=== PATIENT | male | born 1985 | race Hispanic/Latino ===

== ENCOUNTER 2020-07-05 18:30 | Emergency (ER) | payer OTHER, SELFPAY ==
--- NOTE | 2020-07-05 18:55 | ER ---
Nurse's Notes [facility] Name: Jason Aldridge Age: 34 yrs Sex: Male : 1985 Arrival Date: 07/05/2020 Time: 18:36 Bed Waiting Private MD: Diagnosis: ED Course: 07/05 18:36 Patient arrived in ED. mr Administered Medications: No medications were administered Outcome: 18:54 Patient left the ED. [facility] Signatures: Emmy Holder Lynsay, RN RN ll1
== END 2020-07-05 18:54 | disposition left against medical advice (07) ==
LOC: ER 18:30
DX: Z02.9 Encounter for administrative examinations, unspecified (principal)

== ENCOUNTER 2021-06-09 22:36 | Emergency (ER) | payer SELFPAY ==
[2021-06-10] MEDS ORDERED: KETOROLAC 30 MG/ML INJ ONE (00:02)
[2021-06-10] MEDS ORDERED: CYCLOBENZAPRINE 10 MG TAB ONE (00:02)
[2021-06-10] MEDS ORDERED: LIDOCAINE 4% PATCH ONE (00:02)
--- NOTE | 2021-06-10 00:38 | EDPHYS ---
Physician Documentation [facility] Name: Jason Aldridge Age: 35 yrs Sex: Male : 1985 Arrival Date: 06/09/2021 Time: 22:39 Bed 12 Private MD: ED Physician David Ramon HPI: 06/09 23:41 This 35 yrs old Male presents to ER via Ambulatory with complaints of Back pm1 Pain. 23:41 The patient presents with pain that is acute. The symptoms are located in the left mid pm1 back. Onset: The symptoms/episode began/occurred today, at 18:00. The pain does not radiate. Associated signs and symptoms: Pertinent negatives: abdominal pain, chest pain, numbness, tingling, Shortness of breath. The problem was sustained without known cause. Modifying factors: The patient symptoms are alleviated by remaining still, the patient symptoms are aggravated by bending. Severity of symptoms: in the emergency department the symptoms are unchanged. The patient has not experienced similar symptoms in the past. The patient has not recently seen a physician. Historical: - Allergies: 23:03 No Known Allergies; ld1 - Home Meds: 23:03 None [Active]; ld1 - PMHx: 23:03 None; ld1 - PSHx: 23:03 None; ld1 - Immunization history:: Adult Immunizations up to date, Client reports receiving the 2nd dose of the Covid vaccine. - Social history:: Smoking status: Patient reports the use of cigarette tobacco products, smokes one pack cigarettes per day. Patient uses alcohol, occasionally. ROS: 23:41 Constitutional: Negative for fever, chills, and weight loss, Cardiovascular: Negative pm1 for chest pain, palpitations, and edema, Respiratory: Negative for shortness of breath, cough, wheezing, and pleuritic chest pain, Abdomen/GI: Negative for abdominal pain, nausea, vomiting, diarrhea, and constipation. 23:41 : Negative for injury, bleeding, discharge, and swelling, MS/Extremity: Negative for injury and deformity, Skin: Negative for injury, rash, and discoloration, Neuro: Negative for headache, weakness, numbness, tingling, and seizure. 23:41 Back: Positive for of the left mid back pain. 23:41 All other systems are negative. Exam: 23:41 Constitutional: This is a well developed, well nourished patient who is awake, alert, pm1 and in no acute distress. Head/Face: Normocephalic, atraumatic. Chest/axilla: Normal chest wall appearance and motion. Nontender with no deformity. No lesions are appreciated. Cardiovascular: Regular rate and rhythm with a normal S1 and S2. No gallops, murmurs, or rubs. Normal PMI, no JVD. No pulse deficits. Respiratory: Lungs have equal breath sounds bilaterally, clear to auscultation and percussion. No rales, rhonchi or wheezes noted. No increased work of breathing, no retractions or nasal flaring. Abdomen/GI: Soft, non-tender, with normal bowel sounds. No distension or tympany. No guarding or rebound. No evidence of tenderness throughout. 23:41 Skin: Warm, dry with normal turgor. Normal color with no rashes, no lesions, and no evidence of cellulitis. MS/ Extremity: Pulses equal, no cyanosis. Neurovascular intact. Full, normal range of motion. 23:41 Back: muscle spasm, is appreciated in the left mid back. 23:41 Neuro: Exam negative for acute changes, Orientation: is normal, Mentation: is normal, Motor: moves all fours, Sensation: is normal, no obvious gross deficits, Gait: is steady, at a normal pace, without difficulty. Vital Signs: 23:01 BP 122 / 74; Pulse 79; Resp 18; Temp 98.1(TE); Pulse Ox 98% on R/A; Weight 108.86 kg; ld1 Height 5 ft. 9 in. (175.26 cm); Pain 6/10; 06/10 01:00 Pain 4/10; vc1 01:00 Pain 4/10; vc1 06/09 23:01 Body Mass Index 35.44 (108.86 kg, 175.26 cm) ld1 MDM: 06/09 23:47 Patient medically screened. pm1 06/10 00:36 Data reviewed: vital signs. Data interpreted: Pulse oximetry: on room air is 98 %. pm1 Interpretation: normal. Counseling: I had a detailed discussion with the patient and/or guardian regarding: the historical points, exam findings, and any diagnostic results supporting the discharge/admit diagnosis, the need for outpatient follow up, to return to the emergency department if symptoms worsen or persist or if there are any questions or concerns that arise at home. 00:36 ED course: Displayed to massage to perform on the patient. I Improved the pm1 patient's muscle spasms and improved his range of motions with deep massage and percussion to area of pain. Administered Medications: 00:07 Drug: Ketorolac 60 mg Route: IM; Site: left gluteus; vc1 01:00 Follow up: Pain 4/10 Adult; Response: No adverse reaction; Marked relief of symptoms; vc1 Pain is decreased 00:08 Drug: Lidoderm Patch 5 % (700 mg/patch) 1 patches Route: Topical; Site: affected area; vc1 00:08 Drug: Flexeril (cyclobenzaprine) 10 mg Route: PO; vc1 01:00 Follow up: Pain 4/10 Adult; Response: No adverse reaction; Marked relief of symptoms; vc1 Pain is decreased Disposition: 02:39 Co-signature as Attending Physician, David Ramon DO I agree with the assessment and ms3 plan of care. Disposition Summary: 06/10/21 00:38 Discharge Ordered Location: Home pm1 Problem: new pm1 Symptoms: have improved pm1 Condition: Stable pm1 Diagnosis - Muscle spasm of back pm1 Followup: pm1 - With: Emergency Department - When: As needed - Reason: Worsening of condition Followup: pm1 - With: Private Physician - When: 2 - 3 days - Reason: Recheck today's complaints, Continuance of care, Re-evaluation by your physician Discharge Instructions: - Discharge Summary Sheet pm1 - Muscle Cramps and Spasms pm1 - Back Injury Prevention, [id number] pm1 - Back Exercises pm1 Forms: - Medication Reconciliation Form pm1 - Thank You Letter pm1 - Antibiotic Education pm1 - Prescription Opioid Use pm1 - Work release form mb4 Prescriptions: - Cyclobenzaprine 10 mg Oral Tablet - take 1 tablet by ORAL route every 8 hours As needed; 30 tablet; Refills: 0, pm1 Product Selection Permitted - Lidoderm 5 % Topical adhesive patch,medicated - apply 1 patch by TRANSDERMAL route once daily As needed 12 hours on and 12 pm1 hours off in a 24 hour period; 10 patch; Refills: 0, Product Selection Permitted - Diclofenac Sodium 75 mg Oral tablet,delayed release (DR/EC) - take 1 tablet by ORAL route 2 times per day As needed; 30 tablet; Refills: 0, pm1 Product Selection Permitted Signatures: Horace Aguirre, BOAT DECKHAND BOAT DECKHAND pm1 David Ramon DO DO ms3 Elvia Thornton, RN RN ld1 Alexandrea Perez RN RN vc1
--- NOTE | 2021-06-10 00:38 | ER ---
Nurse's Notes [facility] Name: Jason Aldridge Age: 35 yrs Sex: Male : 1985 Arrival Date: 06/09/2021 Time: 22:39 Bed 12 Private MD: Diagnosis: Muscle spasm of back Presentation: 06/09 23:01 Chief complaint: Patient states: Left side mid back pain began at 0600 - after shower ld1 this evening pt reports being unable to tolerate the back pain. Denies injury. Coronavirus screen: At this time, the client does not indicate any symptoms associated with coronavirus-19. Ebola Screen: No symptoms or risks identified at this time. Initial Sepsis Screen: Does the patient meet any 2 criteria? No. Patient's initial sepsis screen is negative. Does the patient have a suspected source of infection? No. Patient's initial sepsis screen is negative. Risk Assessment: Do you want to hurt yourself or someone else? Patient reports no desire to harm self or others. Onset of symptoms was June 09, 2021. 23:01 Method Of Arrival: Ambulatory ld1 23:01 Acuity: ANGELINA 4 ld1 Triage Assessment: 23:03 General: Appears in no apparent distress. comfortable, Behavior is calm, cooperative, ld1 appropriate for age. Pain: Complains of pain in left low back and left mid back Pain does not radiate. Pain currently is 6 out of 10 on a pain scale. Quality of pain is described as sharp, throbbing, Pain began suddenly, Is continuous. Neuro: Level of Consciousness is awake, alert, obeys commands, Oriented to person, place, time, situation. Cardiovascular: Capillary refill < 3 seconds Patient's skin is warm and dry. Respiratory: Airway is patent Respiratory effort is even, unlabored, Respiratory pattern is regular, symmetrical. GI: Abdomen is round non-distended. : No signs and/or symptoms were reported regarding the genitourinary system. Derm: No signs and/or symptoms reported regarding the dermatologic system. Musculoskeletal: Range of motion: intact in all extremities. Historical: - Allergies: 23:03 No Known Allergies; ld1 - Home Meds: 23:03 None [Active]; ld1 - PMHx: 23:03 None; ld1 - PSHx: 23:03 None; ld1 - Immunization history:: Adult Immunizations up to date, Client reports receiving the 2nd dose of the Covid vaccine. - Social history:: Smoking status: Patient reports the use of cigarette tobacco products, smokes one pack cigarettes per day. Patient uses alcohol, occasionally. Screenin/21 00:22 Abuse screen: Denies threats or abuse. Nutritional screening: No deficits noted. vc1 Tuberculosis screening: No symptoms or risk factors identified. Fall Risk None identified. Assessment: 00:00 General: Appears in no apparent distress. uncomfortable, Behavior is calm, cooperative, vc1 appropriate for age. Pain: Complains of pain in left mid back Pain does not radiate. Pain currently is 7 out of 10 on a pain scale. Quality of pain is described as sharp. Neuro: Level of Consciousness is awake, alert, obeys commands, Oriented to person, place, time, situation, Appropriate for age. 01:00 Reassessment: Patient and/or family updated on plan of care and expected duration. Pain vc1 level reassessed. Patient is alert, oriented x 3, equal unlabored respirations, skin warm/dry/pink. Patient states feeling better. Patient states symptoms have improved. Vital Signs: 06/09 23:01 BP 122 / 74; Pulse 79; Resp 18; Temp 98.1(TE); Pulse Ox 98% on R/A; Weight 108.86 kg; ld1 Height 5 ft. 9 in. (175.26 cm); Pain 6/10; 06/10 01:00 Pain 4/10; vc1 01:00 Pain 4/10; vc1 06/09 23:01 Body Mass Index 35.44 (108.86 kg, 175.26 cm) ld1 ED Course: 06/09 22:39 Patient arrived in ED. es 22:53 Horace Aguirre NP is PHCP. pm1 22:53 David Ramon DO is Attending Physician. pm1 23:03 Triage completed. ld1 23:03 Arm band placed on right wrist. ld1 06/10 00:21 Alexandrea Perez, ZACKERY is Primary Nurse. vc1 00:22 Patient has correct armband on for positive identification. Bed in low position. Call vc1 light in reach. 01:00 No provider procedures requiring assistance completed. Patient did not have IV access vc1 during this emergency room visit. Administered Medications: 00:07 Drug: Ketorolac 60 mg Route: IM; Site: left gluteus; vc1 01:00 Follow up: Pain 4/10 Adult; Response: No adverse reaction; Marked relief of symptoms; vc1 Pain is decreased 00:08 Drug: Lidoderm Patch 5 % (700 mg/patch) 1 patches Route: Topical; Site: affected area; vc1 00:08 Drug: Flexeril (cyclobenzaprine) 10 mg Route: PO; vc1 01:00 Follow up: Pain 4/10 Adult; Response: No adverse reaction; Marked relief of symptoms; vc1 Pain is decreased Outcome: 00:38 Discharge ordered by MD. pm1 01:00 Discharged to home ambulatory, with significant other. vc1 01:00 Condition: good 01:00 Discharge instructions given to patient, significant other, Instructed on discharge instructions, follow up and referral plans. medication usage, Demonstrated understanding of instructions, follow-up care, medications, Prescriptions given X 3. 01:04 Patient left the ED. vc1 Signatures: Kiki Becker Patrick, NP DESIGNER pm1 Elvia Thornton RN RN ld1 Alexandrea Perez RN RN vc1
[2021-06-10 04:36] VITALS: BP 122/74; TEMP 98.1; O2SAT 98
== END 2021-06-10 01:04 | disposition home or self-care (01) ==
LOC: ER 22:36
DX: M62.830 Muscle spasm of back (principal); F17.210 Nicotine dependence, cigarettes, uncomplicated
CPT/HCPCS: 96372; 99283

== ENCOUNTER 2021-07-24 09:37 | Emergency (ER) | payer SELFPAY ==
[2021-07-24] MEDS ORDERED: LIDOCAINE 1% W/EPI 1:100,000 MDV 50 ML VIAL ONE (09:59)
--- NOTE | 2021-07-24 10:24 | EDPHYS ---
Physician Documentation [facility] Name: Jason Aldridge Age: 35 yrs Sex: Male : 1985 Arrival Date: 07/24/2021 Time: 09:39 Bed 6 Private MD: ED Physician Jason Jimenez HPI: 07/24 09:53 This 35 yrs old Male presents to ER via Ambulatory with complaints of rn Abdominal Pain - swelling/redness. 09:53 The patient presents with an abscess of the abdomen, The patient presents with rn cellulitis of the , the patient presents with a swollen area of the abdomen. Description: erythematous, fluctuant, swollen, warm. Onset: The symptoms/episode began/occurred 3 day(s) ago. Possible cause(s): Irritation from work belt. Associated signs and symptoms: Pertinent positives: erythema, swelling. Modifying factors: the symptoms are alleviated by nothing, the symptoms are aggravated by sitting, squeezing the lesion and expressing the contents, touching. Severity of symptoms: At their worst the symptoms were mild, in the emergency department the symptoms are unchanged. The patient has not experienced similar symptoms in the past. Patient works outside a residential builder, 3 days ago noticed some irritation and now increased size and swelling. Thinks work belt irritated area. Not diabetic, no medical problems. No fever.. Historical: - Allergies: 09:49 No Known Allergies; jl7 - Home Meds: 09:49 None [Active]; jl7 - PMHx: 09:49 None; jl7 - PSHx: 09:49 None; jl7 - Immunization history:: Client reports receiving the 2nd dose of the Covid vaccine. - Social history:: Smoking status: Patient reports the use of cigarette tobacco products, smokes one-half pack cigarettes per day. - Family history:: not pertinent. - Hospitalizations: : No recent hospitalization is reported. ROS: 09:53 Constitutional: Negative for fever, chills, and weight loss, Abdomen/GI: Negative for rn abdominal pain, nausea, vomiting, diarrhea, and constipation, MS/Extremity: Negative for injury and deformity, Skin: Positive for erythema and swelling to the lower abdominal wall Exam: 09:53 Constitutional: This is a well developed, well nourished patient who is awake, alert, rn and in no acute distress. Cardiovascular: Regular rate and rhythm. No pulse deficits. Skin: Warm, dry, 3 cm area of induration lower anterior abdominal wall along waistline with minimal fluctuance in the center, no head, no drainage Vital Signs: 09:47 BP 122 / 77; Pulse 75; Resp 17; Temp 98.4; Pulse Ox 96% ; Weight 108.86 kg; Height 5 jl7 ft. 9 in. (175.26 cm); Pain 0/10; 10:25 BP 117 / 74; Pulse 76; Resp 18; Pain 2/10; jh6 09:47 Body Mass Index 35.44 (108.86 kg, 175.26 cm) jl7 Procedures: 09:53 Ultrasound: Type: Bedside ultrasound performed by reveals 1 cm abscess with 2 rn to 3 cm of surrounding induration and cellulitis., performed by the emergency department physician. 10:23 I \T\ D: Incision and drainage was performed for an abscess of the lower abd wall Prepped rn with Betadine, Anesthetized with 4 ml's 1% Lidocaine w/ Epi. Incised with #11 blade. Drained small amount purulent fluid. Packed with iodoform gauze, Dressing: sterile 4x4 gauze, the patient tolerated the procedure well. MDM: 09:41 Patient medically screened. rn 10:23 Differential diagnosis: abscess, cellulitis. Data reviewed: vital signs, nurses notes, rn and as a result, I will discharge patient. Counseling: I had a detailed discussion with the patient and/or guardian regarding: the historical points, exam findings, and any diagnostic results supporting the discharge/admit diagnosis, the need for outpatient follow up, to return to the emergency department if symptoms worsen or persist or if there are any questions or concerns that arise at home. Response to treatment: the patient's symptoms have markedly improved after treatment, and as a result, I will discharge patient. Special discussion: I discussed with the patient/guardian in detail that at this point there is no indication for admission to the hospital. It is understood, however, that if the symptoms persist or worsen the patient needs to return immediately for re-evaluation. 07/24 10:45 Order name: Dressing - Wound; Complete Time: 10:45 07/24 10:45 Order name: Gloves, Sterile; Complete Time: 10:45 07/24 10:45 Order name: I\T\D Setup; Complete Time: 10:45 ph 07/24 10:45 Order name: Scalpel; Complete Time: 10:45 ph Administered Medications: 10:15 Drug: Lidocaine-Epinephrine -1%: (1:100,000) 1 vials Volume: 20 ml; Route: Infiltration;ph 10:45 Follow up: Response: No adverse reaction ph Disposition Summary: 07/24/21 10:24 Discharge Ordered Location: Home rn Problem: new rn Symptoms: have improved rn Condition: Stable rn Diagnosis - Cutaneous abscess of abdominal wall rn - Cellulitis of abdominal wall rn Followup: rn - With: Guzman Baez MD - When: 2 - 3 days - Reason: Wound Recheck, Recheck today's complaints, Re-evaluation by your physician Discharge Instructions: - Discharge Summary Sheet rn - Skin Abscess rn - Cellulitis, Adult rn - Incision and Drainage rn - Wound Packing rn Forms: - Medication Reconciliation Form rn - Thank You Letter rn - Antibiotic graphics intern - Prescription Opioid Use rn - Work release form ph Prescriptions: - Clindamycin HCl 300 mg Oral Capsule - take 1 capsule by ORAL route every 6 hours for 10 days; 40 capsule; Refills: 0, rn Product Selection Permitted Signatures: Jason Jimenez MD MD rn Mara Downey RN RN López Marquis, RN RN jl7
--- NOTE | 2021-07-24 10:24 | ER ---
Nurse's Notes [facility] Name: Jason Aldridge Age: 35 yrs Sex: Male : 1985 Arrival Date: 07/24/2021 Time: 09:39 Bed 6 Private MD: Diagnosis: Cutaneous abscess of abdominal wall;Cellulitis of abdominal wall Presentation: 07/24 09:47 Chief complaint: Patient states: Abscess to lower abdomen x 3 days. Coronavirus screen: jl7 At this time, the client does not indicate any symptoms associated with coronavirus-19. Ebola Screen: No symptoms or risks identified at this time. Initial Sepsis Screen: Does the patient meet any 2 criteria? No. Patient's initial sepsis screen is negative. Does the patient have a suspected source of infection? No. Patient's initial sepsis screen is negative. Risk Assessment: Do you want to hurt yourself or someone else? Patient reports no desire to harm self or others. Onset of symptoms was July 21, 2021. 09:47 Method Of Arrival: Ambulatory [facility] 09:47 Acuity: ANGELINA 4 jl7 Triage Assessment: 09:49 General: Appears in no apparent distress. uncomfortable, Behavior is calm, cooperative, jl7 appropriate for age. Pain: Denies pain. GI: Patient currently denies diarrhea, nausea, vomiting. Derm: Abscess located on left lower quadrant. Historical: - Allergies: 09:49 No Known Allergies; jl7 - Home Meds: 09:49 None [Active]; jl7 - PMHx: 09:49 None; jl7 - PSHx: 09:49 None; jl7 - Immunization history:: Client reports receiving the 2nd dose of the Covid vaccine. - Social history:: Smoking status: Patient reports the use of cigarette tobacco products, smokes one-half pack cigarettes per day. - Family history:: not pertinent. - Hospitalizations: : No recent hospitalization is reported. Screenin:04 Abuse screen: Denies threats or abuse. Denies injuries from another. Nutritional ph screening: No deficits noted. Tuberculosis screening: No symptoms or risk factors identified. Fall Risk None identified. Assessment: 10:21 General: Appears in no apparent distress. Behavior is calm, cooperative. Pain: jh6 Complains of pain in left lower quadrant Pain currently is 6 out of 10 on a pain scale. Quality of pain is described as aching, shooting, tender, Pain began 2-3 days ago. Is continuous, Aggravated by increased activity. Derm: Skin is intact, is thin, Abscess located on left lower quadrant is half dollar sized, Reports increased pain that is 6 out of 10 on a pain scale. 10:25 GI: Abdomen is tender to palpation in left lower quadrant. jh6 Vital Signs: 09:47 BP 122 / 77; Pulse 75; Resp 17; Temp 98.4; Pulse Ox 96% ; Weight 108.86 kg; Height 5 jl7 ft. 9 in. (175.26 cm); Pain 0/10; 10:25 BP 117 / 74; Pulse 76; Resp 18; Pain 2/10; jh6 09:47 Body Mass Index 35.44 (108.86 kg, 175.26 cm) jl7 ED Course: 09:39 Patient arrived in ED. as 09:41 Jason Jimenez MD is Attending Physician. rn 09:48 Patient has correct armband on for positive identification. Bed in low position. Call mh5 light in reach. Adult w/ patient. Pulse ox on. NIBP on. 09:49 Triage completed. jl7 09:49 Arm band placed on right wrist. jl7 10:04 Mara Downey, RN is Primary Nurse. ph 10:24 Guzman Baez MD is Referral Physician. rn 10:24 Assist provider with I \T\ D: of an abscess on left lower abd on belt line Set up I\T\D jh 6 tray. Performed by Jason Jimenez MD Wound packed. iodoform gauze, Dressing with ABD pad, 4X4s, Patient tolerated well. 10:43 Patient did not have IV access during this emergency room visit. ph Administered Medications: 10:15 Drug: Lidocaine-Epinephrine -1%: (1:100,000) 1 vials Volume: 20 ml; Route: Infiltration;ph 10:45 Follow up: Response: No adverse reaction ph Outcome: 10:24 Discharge ordered by . rn 10:43 Discharged to home ambulatory, with significant other. ph 10:43 Condition: good 10:43 Discharge instructions given to patient, significant other, Instructed on discharge instructions, follow up and referral plans. medication usage, wound care, Demonstrated understanding of instructions, follow-up care, medications, wound care, Prescriptions given X 1. 10:47 Patient left the ED. ph Signatures: Yuli Baez Roman, MD MD rn Mara Downey RN RN ph Criss Baez [facility] López Gaines RN RN jl7 Nina Sy RN RN jh6
[2021-07-24 10:55] VITALS: TEMP 98.4; O2SAT 96
[2021-07-24 10:57] VITALS: BP 117/74
== END 2021-07-24 10:47 | disposition home or self-care (01) ==
LOC: ER 09:37
PROC: 0H97XZZ Drainage of Abdomen Skin, External Approach (ICD-10-PCS; principal; 2021-07-24)
DX: L02.211 Cutaneous abscess of abdominal wall (principal); L03.311 Cellulitis of abdominal wall; F17.210 Nicotine dependence, cigarettes, uncomplicated
CPT/HCPCS: 99284

== ENCOUNTER 2024-04-23 07:41 | Emergency (ER) | payer SELFPAY ==
[2024-04-23] MEDS ORDERED: MORPHINE 4 MG/ML SYR ONE (08:07)
[2024-04-23] MEDS ORDERED: ONDANSETRON 4 MG/2 ML VIAL ONE (08:07)
[2024-04-23] MEDS ORDERED: ACETAMINOPHEN 325 MG TABLET ONE (08:07)
[2024-04-23] MEDS ORDERED: NA CHLORIDE 0.9% 1,000 ML ONE (08:08)
[2024-04-23 08:38] LABS: Specific Gravity > 1.030 (1.005-1.030); Sqamous Epithelial <5 /HPF (None Seen); Urine Bacteria None Seen /HPF (<20); Urine Bilirubin NEGATIVE (Negative); Urine Blood 1+ (Negative); Urine Clarity Turbid (Clear); Urine Color Yellow (Yellow); Urine Culture Reflex Order NOT NEEDED; Urine Glucose 4+ (Over) (Negative); Urine Ketones 4+ (Negative); Urine Microscopic Reflex YN ORDER UMIC; Urine Mucus 1+ /HPF (None Seen); Urine Nitrite NEGATIVE (Negative); Urine Protein 3+ (Negative); Urine RBC <5 /HPF (None Seen); Urine Urobilinogen Normal (Normal); Urine WBC <5 /HPF (<5); Urine WBC Clump Rare /HPF (None Seen)
[2024-04-23 09:21] LABS: Absolute Basophils 0.1 K/uL (0-0.5); Absolute Eosinophils 0.2 K/uL (0-0.5); Absolute Lymphocytes (CBC) 1.8 K/uL (0.7-4.9); Absolute Neutrophil 10.6 K/uL (1.8-8.0); Basophils % 0.8 % (0-1.3); Eosinophils % 1.3 % (0-4.4); Hematocrit 39.5 % (39.6-49.0); Hemoglobin 14.1 g/dL (13.6-17.9); Lymphocytes % 13.2 % (15.3-44.8); MCH 30.4 pg (27.0-35.0); MCHC 35.6 g/dL (32.0-36.0); MCV 85.5 fL (80-100); Monocytes % 7.5 % (3.3-12.3); Neutrophils % 77.2 % (41.7-73.7); RBC Red Blood Cell Count 4.62 M/uL (4.33-5.43); Red Cell Distribution Width 14.5 % (12.1-15.2)
[2024-04-23 09:22] LABS: Platelets 191 thou/uL (152-406)
[2024-04-23 09:23] LABS: MPV 8.7 fL (7.6-11.3)
[2024-04-23 09:52] LABS: PT Prothrombin Time 11.7 SECONDS (9.4-12.5); Protime INR 1.12
[2024-04-23 09:53] LABS: Albumin 2.9 g/dL (3.4-5.0); Albumin/Globulin Ratio 0.6 (1.1-1.8); Anion Gap 10.7 mEq/L (5.0-15.0); Bilirubin Total 0.9 mg/dL (0.2-1.0); Globulin 4.6 g/dL (2.3-3.5); Protein, Total 7.5 g/dL (6.4-8.2)
[2024-04-23 09:54] LABS: PTT, Activated Partial Thromb 32.9 SECONDS (24.3-36.9)
[2024-04-23 09:58] LABS: Potassium 3.7 mEq/L (3.5-5.1)
--- NOTE | 2024-04-23 11:10 | RAD REPORT ---
EXAMINATION: CT Abdomen Pelvis W Contrast CLINICAL INDICATION: Male, 38 years old. lower abd pain TECHNIQUE: CT abdomen and pelvis was performed, after the administration of IV contrast, as per [facility] protocol. Axial, sagittal and coronal reconstructions were obtained. One or more of the following dose reduction techniques were used: Automated exposure control, adjustment of the mA and k V according to patient size, and iterative reconstruction. Unless otherwise specified, incidental findings do not require dedicated imaging follow-up. COMPARISON: No prior exam. FINDINGS: LOWER CHEST: The visualized lung bases are clear. LIVER: Pronounced fatty liver is present. No focal lesion or biliary dilataion is seen. BILIARY SYSTEM: No suspicious abnormalities. SPLEEN: Normal size. No focal lesion. PANCREAS: Severe inflammatory changes as detailed below, centered on the uncinate process. No mass, d uctal dilation, or pablito-pancreatic fluid. ADRENALS: Normal; no mass. KIDNEYS: Right interpolar transcortical 5.3 cm cyst. Normal size and contour. No hydronephrosis. URINARY BLADDER: Unremarkable. GASTROINTESTINAL TRACT: Severe wall thickening, mucosal hyperenhancement, and adjacent fat stranding involving the third part of duodenum extending towards the level of the ligament of Treitz. Inflammatory changes also involve the adjacent uncinate process of the pancreas. Nonlocalized fluid a ccumulation interposed between the lower pancreas and the third part of duodenum, measuring less than 2 cm in thickness. Nonlocalized fluid dissects within the retroperitoneum, extending towards the mesenteric root and right paracolic gutter. No evidence of free air, significant intraperitoneal free fluid, bowel obstruction or abscess. Nonspecific fluid opacification of distal small bowel and proximal colon, may relate to diarrheal state. APPENDIX: Normal appendix. LYMPH NODES: No lymphadenopathy. MUSCULOSKELETAL: No acute or suspicious osseous abnormality. ADDITIONAL FINDINGS: None. IMPRESSION: Pronounced inflammatory changes centered on the uncinate process of the pancreas and adjacent third p art of duodenum extending towards the level of the ligament of Treitz. No localized fluid accumulation along the duodenal pancreatic groove at that level, with no discrete fluid collections. Findings may relate to focal pancreatitis, versus severe duodenitis or a subtle perforated ulcer with adjacent pancreatitis. Diffuse hepatic steatosis. Incidentally noted right interpolar transcortical 5.3 cm renal cyst. Nonsp ecific fluid opacification of the distal small bowel and proximal colon, may relate to diarrheal state. THIS REPORT CONTAINS FINDINGS THAT MAY BE CRITICAL TO PATIENT CARE. The findings were verbally commun icated via telephone to Jason Jimenez MD on 04/23/2024 11:05 AM.
[2024-04-23] MEDS ORDERED: PANTOPRAZOLE 40 MG INJ ONE (11:23)
[2024-04-23] MEDS ORDERED: NA CHLORIDE 0.9% 100 ML ONE (11:24)
[2024-04-23] MEDS ORDERED: NA CHLORIDE 0.9% 250 ML ONE (11:24)
[2024-04-23] MEDS ORDERED: PIPERACIL/TAZO 3.375 GM VIAL IV ONE (11:24)
--- NOTE | 2024-04-23 11:54 | ER ---
Nurse's Notes [facility] Name: Jason Aldridge Age: 38 yrs Sex: Male : 1985 Arrival Date: 04/23/2024 Time: 07:41 Bed 16 Private MD: Diagnosis: Acute pancreatitis without necrosis or infection, unspecified;Duodenitis without bleeding Presentation: 04/23 08:02 Chief complaint: Patient states: abd bloating, lower abd pain and n/v since yesterday. kc6 Coronavirus screen: At this time, the client does not indicate any symptoms associated with coronavirus-19. Ebola Screen: No symptoms or risks identified at this time. Initial Sepsis Screen: Does the patient meet any 2 criteria? HR > 90 bpm. Does the patient have a suspected source of infection? No. Patient's initial sepsis screen is negative. Risk Assessment: Do you want to hurt yourself or someone else? Patient reports no desire to harm self or others. Onset of symptoms was April 23, 2024. 08:02 Method Of Arrival: Ambulatory [facility] 08:02 Acuity: ANGELINA 3 kc6 Historical: - Allergies: 08:04 No Known Allergies; kc6 - Home Meds: 08:04 None [Active]; kc6 - PMHx: 08:04 None; kc6 - PSHx: 08:04 None; kc6 - Immunization history:: Adult Immunizations up to date. - Infectious Disease History:: Denies. - Family history:: not pertinent. - Social history:: Smoking status: Patient reports the use of cigarette tobacco products, denies chronic smoking, but will smoke occasionally, Reported history of juuling and/or vaping. - Hospitalizations: : No recent hospitalization is reported. Screenin:04 [facility] ED Fall Risk Assessment (Adult) History of falling in the last 3 months, kc6 including since admission No falls in past 3 months (0 pts) Confusion or Disorientation No (0 pts) Intoxicated or Sedated No (0 pts) Impaired Gait No (0 pts) Mobility Assist Device Used No (0 pt) Altered Elimination No (0 pt) Score/Fall Risk Level 0 - 2 = Low Risk Oriented to surroundings, Maintained a safe environment, Educated pt \T\ family on fall prevention, incl call for assistance when getting out of bed. Abuse screen: Denies threats or abuse. Denies injuries from another. Nutritional screening: No deficits noted. Tuberculosis screening: No symptoms or risk factors identified. Assessment: 08:02 General: Appears in no apparent distress. comfortable, well groomed, well developed, kc6 Behavior is calm, cooperative, appropriate for age. Pain: Complains of pain in right lower quadrant and left lower quadrant Pain does not radiate. Pain currently is 6 out of 10 on a pain scale. Quality of pain is described as crampy, dull, Pain began 1 day ago. Is intermittent. Neuro: Level of Consciousness is awake, alert, obeys commands, Oriented to person, place, time, situation, Appropriate for age. Cardiovascular: Capillary refill < 3 seconds. Respiratory: Airway is patent Trachea midline Respiratory effort is even, unlabored, Respiratory pattern is regular, symmetrical. GI: Abdomen is round Bowel sounds present X 4 quads. Abd is soft X 4 quads Abdomen is tender to palpation in right lower quadrant and left lower quadrant Reports lower abdominal pain, nausea, vomiting, Patient currently denies constipation, diarrhea. : No signs and/or symptoms were reported regarding the genitourinary system. Urine is clear. EENT: No signs and/or symptoms were reported regarding the EENT system. Derm: No signs and/or symptoms reported regarding the dermatologic system. Skin is intact, is healthy with good turgor, Skin is dry, Skin is pale, Skin temperature is warm. Musculoskeletal: No signs and/or symptoms reported regarding the musculoskeletal system. Circulation, motion, and sensation intact. Range of motion: intact in all extremities. 09:02 Reassessment: Patient appears in no apparent distress at this time. No changes from kc6 previously documented assessment. Patient and/or family updated on plan of care and expected duration. Pain level reassessed. Patient is alert, oriented x 3, equal unlabored respirations, skin warm/dry/pink. 10:02 Reassessment: Patient appears in no apparent distress at this time. No changes from kc6 previously documented assessment. Patient and/or family updated on plan of care and expected duration. Pain level reassessed. Patient is alert, oriented x 3, equal unlabored respirations, skin warm/dry/pink. 11:38 Reassessment: Patient appears in no apparent distress at this time. No changes from kc6 previously documented assessment. Patient and/or family updated on plan of care and expected duration. Pain level reassessed. Patient is alert, oriented x 3, equal unlabored respirations, skin warm/dry/pink. 12:35 Reassessment: Patient appears in no apparent distress at this time. No changes from kc6 previously documented assessment. Patient and/or family updated on plan of care and expected duration. Pain level reassessed. Patient is alert, oriented x 3, equal unlabored respirations, skin warm/dry/pink. 14:08 Reassessment: Patient appears in no apparent distress at this time. No changes from kc6 previously documented assessment. Patient and/or family updated on plan of care and expected duration. Pain level reassessed. Patient is alert, oriented x 3, equal unlabored respirations, skin warm/dry/pink. Vital Signs: 08:02 BP 139 / 80; Pulse 110; Resp 19 S; Temp 100.1(O); Pulse Ox 95% ; Weight 104.33 kg (R); kc6 Height 5 ft. 9 in. (R); Pain 6/10; 08:28 BP 121 / 78; Pulse 100; Resp 18 S; Pulse Ox 95% on R/A; kc6 09:30 BP 110 / 64; Pulse 95; Resp 16; Temp 99(O); Pulse Ox 100% on R/A; kc6 11:38 BP 128 / 75; Pulse 95; Resp 18 S; Pulse Ox 96% on R/A; kc6 12:35 BP 120 / 83; Pulse 95; Resp 16 S; Temp 99.3(O); Pulse Ox 96% on R/A; kc6 14:08 BP 116 / 82; Pulse 96; Resp 19 S; Temp 99.6(O); Pulse Ox 100% on R/A; kc6 08:02 Body Mass Index 33.96 (104.33 kg, 175.26 cm) kc6 08:02 Pain Scale: Adult kc6 ED Course: 07:44 Patient arrived in ED. ra3 07:46 Jason Jimenez MD is Attending Physician. rn 07:57 Silvia Cordoba, ZACKERY is Primary Nurse. kc6 08:04 Triage completed. kc6 08:04 Arm band placed on. kc6 08:04 Patient has correct armband on for positive identification. Bed in low position. Call kc light in reach. Side rails up X 1. Adult w/ patient. Pulse ox on. NIBP on. Door closed. Noise minimized. Lights dimmed. Pillow given. 08:04 Patient maintains SpO2 saturation greater than 95% on room air. kc6 08:04 First set of blood cultures drawn by me. em1 08:04 Initial lab(s) drawn, by me, sent to lab. em1 08:09 CBC with Diff Sent. em1 08:09 CMP Sent. em1 08:09 Lipase Sent. em1 08:09 Urinalysis w/ reflexes Sent. em1 08:18 Second set of blood cultures drawn by me. em1 08:18 Lactate w/ 2H reflex if indic. Sent, Blood Culture Adult (2), Protime (+inr), Ptt, em1 Activated Sent. 09:01 Radiology exam delayed due to lab results not completed at this time. (BUN/Creatinine). sm9 10:[address] via wheelchair. kc6 10:26 CT Abd/Pelvis - IV Contrast Only In Process Unspecified. EDNM 11:58 Transfer initiated with [facility]. eb 12:23 connected the surgeon concrete laborer for [facility] with Dr. Jimenez for patient transfer eb consultation. 13:04 administrative approval given by Vicky Franklin/ patient has been accepted to [facility] eb [facility] room 1623/ Dr. Carlos Espinoza has accepted the patient in transfer/ report to be called to [phone]. 14:08 No provider procedures requiring assistance completed. Patient transferred, IV remains kc6 in place. Administered Medications: 08:11 Drug: Acetaminophen PO 650 mg PO once Route: PO; kc6 09:32 Follow up: Response: No adverse reaction; Temperature is decreased kc6 08:27 Drug: morphine IVP or IV 4 mg IVP once over 4 mins Route: IVP; Infused Over: 4 mins; 6 Site: left antecubital; 09:32 Follow up: Response: No adverse reaction; Pain is decreased; RASS: Alert and Calm (0) kc6 08:27 Drug: NS 0.9% IV 1000 ml IV at 1 bolus Per protocol; to be given as a bolus over 60 kc6 minutes Route: IV; Rate: 1 bolus; Site: left antecubital; 09:33 Follow up: Response: No adverse reaction; IV Status: Completed infusion; IV Intake: kc6 1000ml 08:28 Drug: Ondansetron IVP 4 mg IVP once; over 2 minutes Route: IVP; Site: left antecubital; kc6 09:32 Follow up: Response: No adverse reaction kc6 11:37 Drug: Piperacillin-Tazobactam IVPB 3.375 grams IVPB once over 60 mins; (mix in NS 100 kc6 mL) Route: IVPB; Infused Over: 60 mins; Site: left antecubital; 12:14 Follow up: Response: No adverse reaction; IV Status: Completed infusion; IV Intake: kc6 100ml 11:37 Drug: Pantoprazole IVP 40 mg IVP once Route: IVP; Site: left antecubital; kc6 14:07 Follow up: Response: No adverse reaction kc6 12:14 Drug: Pantoprazole IV 8 mg/hr IV at 25 ml/hr continuous; (Standard dilution is 80 mg in kc6 250 mL NS) Route: IV; Rate: 25 ml/hr; Site: left antecubital; 14:07 Follow up: Response: No adverse reaction; IV Status: Infusion continued upon transfer; kc6 IV Intake: 250ml Medication: 14:09 VIS not applicable for this client. kc6 Intake: 09:33 IV: 1000ml; Total: 1000ml. kc6 12:14 IV: 100ml; Total: 1100ml. kc6 14:07 IV: 250ml; Total: 1350ml. kc6 Outcome: 11:53 ER care complete, transfer ordered by . rn 14:08 Transferred by [facility]. to [facility], Transfer form kc6 completed. 14:08 Condition: stable 14:08 Instructed on the need for transfer, 14:09 Patient left the ED. kc6 Signatures: Dispatcher [employer] EDMS Jason Jimenez MD MD rn Martinez, Eric em1 Pooja Gallardo Kaitlyn, RN RN kc6 Ana Topete9 Caridad Phelps ra3 Corrections: (The following items were deleted from the chart) 08:25 08:09 Initial lab(s) drawn, by ct, sent to lab. em1 em1 08:25 08:09 Inserted saline lock: 20 gauge in left forearm, using aseptic technique. Blood em1 collected. Flushed with 10 mL NS em1 : 08:27 BLOOD CULTURE*+BA.LAB.BRZ drawn and sent. em1 em1 : 08:27 LACTATE+C.LAB.BRZ drawn and sent. em1 em1 08:27 PROTIME (+INR)+COAG.LAB.BRZ drawn and sent. em1 em1 08:27 PTT, ACTIVATED+COAG.LAB.BRZ drawn and sent. em1 em1 13:22 13:19 administrative approval given by Vicky Franklin/ patient has been accepted to [facility] room 1623/ Dr. Carlos Espinoza has accepted the patient in transfer/ report to be called to [phone]
--- NOTE | 2024-04-23 11:54 | EDPHYS ---
Physician Documentation [facility] Name: Jason Aldridge Age: 38 yrs Sex: Male : 1985 Arrival Date: 04/23/2024 Time: 07:41 Bed 16 Private MD: ED Physician Jason Jimenez HPI: 04/23 07:56 This 38 yrs old Male presents to ER via Unassigned with complaints of Stomach rn pain. 07:56 The patient presents with abdominal pain in the lower abdomen. Onset: The rn symptoms/episode began/occurred yesterday. The symptoms do not radiate. Associated signs and symptoms: Pertinent positives: nausea, Pertinent negatives: blood in stools, chest pain, constipation, diarrhea, dysuria, fever. The symptoms are described as achy, constant. Modifying factors: The symptoms are alleviated by nothing, the symptoms are aggravated by movement, touching the area, walking. Severity of pain: At its worst the pain was moderate in the emergency department the pain is unchanged. The patient has not experienced similar symptoms in the past. Patient reports lower abdominal pain, bilateral, began yesterday, associated with chills but no fever. No vomiting or diarrhea. Reports no urinary symptoms. No history of kidney stones. Has not had previous abdominal surgeries. Denies trauma.. Historical: - Allergies: 08:04 No Known Allergies; kc6 - Home Meds: 08:04 None [Active]; kc6 - PMHx: 08:04 None; kc6 - PSHx: 08:04 None; kc6 - Immunization history:: Adult Immunizations up to date. - Infectious Disease History:: Denies. - Family history:: not pertinent. - Social history:: Smoking status: Patient reports the use of cigarette tobacco products, denies chronic smoking, but will smoke occasionally, Reported history of juuling and/or vaping. - Hospitalizations: : No recent hospitalization is reported. ROS: 07:56 Constitutional: Negative for fever, chills, and weight loss, Cardiovascular: Negative rn for chest pain, palpitations, and edema, Respiratory: Negative for shortness of breath, cough, wheezing, and pleuritic chest pain, Abdomen/GI: Positive for lower abdominal pain Back: Negative for injury and pain, : Negative for injury, bleeding, discharge, and swelling, MS/Extremity: Negative for injury and deformity, Skin: Negative for injury, rash, and discoloration, Neuro: Negative for headache, weakness, numbness, tingling, and seizure, Exam: 07:56 Constitutional: This is a well developed, well nourished patient who is awake, alert, rn and in no acute distress. Ambulatory to room without assistance or difficulty Cardiovascular: Regular rate and rhythm. No pulse deficits. Respiratory: No increased work of breathing, no retractions or nasal flaring. Abdomen/GI: Soft, bilateral lower abdominal tenderness, no rebound or guarding. No masses. 08:18 ECG was reviewed by the Attending Physician. rn Vital Signs: 08:02 BP 139 / 80; Pulse 110; Resp 19 S; Temp 100.1(O); Pulse Ox 95% ; Weight 104.33 kg (R); kc6 Height 5 ft. 9 in. (R); Pain 6/10; 08:28 BP 121 / 78; Pulse 100; Resp 18 S; Pulse Ox 95% on R/A; kc6 09:30 BP 110 / 64; Pulse 95; Resp 16; Temp 99(O); Pulse Ox 100% on R/A; kc6 11:38 BP 128 / 75; Pulse 95; Resp 18 S; Pulse Ox 96% on R/A; kc6 12:35 BP 120 / 83; Pulse 95; Resp 16 S; Temp 99.3(O); Pulse Ox 96% on R/A; kc6 14:08 BP 116 / 82; Pulse 96; Resp 19 S; Temp 99.6(O); Pulse Ox 100% on R/A; kc6 08:02 Body Mass Index 33.96 (104.33 kg, 175.26 cm) [facility] 08:02 Pain Scale: Adult kc MDM: 07:46 Medical Screening Exam initiated rn 11:51 Differential diagnosis: diverticulitis, gastritis, gastroesophageal reflux disease, rn non-specific abd pain, Perf. Duodenal Ulcer, Perf. Gastric Ulcer. Data reviewed: vital signs, nurses notes, lab test result(s), radiologic studies, CT scan, and as a result, I will admit patient. Consideration of Admission/Observation Patient was admitted/placed on observation. Escalation of care including admission/observation considered. Management of patient was discussed with the following: Offender Employment Specialist: Manage discussed with Dr. Gaines, requests transfer for GI given possible pancreatitis and possible perforation of ulcer. . Counseling: I had a detailed discussion with the patient and/or guardian regarding the historical points, exam findings, and any diagnostic results supporting the discharge/admit diagnosis, lab results, radiology results, the need for further work-up and treatment in the hospital, the need to transfer to another facility, for higher level of care, [facility] does not immediately have the required specialist. Response to treatment: the patient's symptoms have mildly improved after treatment, and as a result, I will admit patient. 04/23 07:53 Order name: CBC with Diff; Complete Time: 10: hb 04/23 07:53 Order name: CMP; Complete Time: 10: hb 04/23 07:53 Order name: Lipase; Complete Time: 10: hb 04/23 07:53 Order name: Urinalysis w/ reflexes; Complete Time: 10: hb 04/23 08:05 Order name: Blood Culture Adult (2) rn 04/23 08:05 Order name: Lactate w/ 2H reflex if indic.; Complete Time: 10: rn 04/23 08:05 Order name: Protime (+inr); Complete Time: 10: rn 04/23 08:05 Order name: Ptt, Activated; Complete Time: 10: rn 04/23 07:53 Order name: CT Abd/Pelvis - IV Contrast Only; Complete Time: 11: hb 04/23 08:05 Order name: EKG; Complete Time: 08: rn 04/23 07:53 Order name: IV Saline Lock; Complete Time: 08: hb 04/23 07:53 Order name: Labs collected and sent; Complete Time: 08: hb 04/23 08:05 Order name: Accucheck; Complete Time: 08: rn 04/23 08:05 Order name: Cardiac monitoring; Complete Time: 08: rn 04/23 08:05 Order name: EKG - Nurse/Tech; Complete Time: 08: rn 04/23 08:05 Order name: IV Saline Lock - Large Bore; Complete Time: 08:11 rn 04/23 08:05 Order name: O2 Per Protocol; Complete Time: 08: rn 04/23 08:05 Order name: O2 Sat Monitoring; Complete Time: 08: rn 04/23 08:05 Order name: Vital Signs; Complete Time: 08:11 rn 04/23 08:30 Order name: Labs - recollect needed: recollect all the blood/ lipemic per Gabriela guzman will page inside lab; Complete Time: 08:57 EC:18 Rate is 97 beats/min. Rhythm is regular. QRS [place] is Normal. MD interval is normal. QRS rn interval is normal. QT interval is normal. No Q waves. T waves are Normal. No ST changes noted. Clinical impression: Normal ECG. Interpreted by me. Reviewed by me. Administered Medications: 08:11 Drug: Acetaminophen PO 650 mg PO once Route: PO; kc6 09:32 Follow up: Response: No adverse reaction; Temperature is decreased [facility] 08:27 Drug: morphine IVP or IV 4 mg IVP once over 4 mins Route: IVP; Infused Over: 4 mins; kc6 Site: left antecubital; 09:32 Follow up: Response: No adverse reaction; Pain is decreased; RASS: Alert and Calm (0) [facility] 08:27 Drug: NS 0.9% IV 1000 ml IV at 1 bolus Per protocol; to be given as a bolus over 60 kc6 minutes Route: IV; Rate: 1 bolus; Site: left antecubital; 09:33 Follow up: Response: No adverse reaction; IV Status: Completed infusion; IV Intake: kc6 1000ml 08:28 Drug: Ondansetron IVP 4 mg IVP once; over 2 minutes Route: IVP; Site: left antecubital; kc6 09:32 Follow up: Response: No adverse reaction [facility] 11:37 Drug: Piperacillin-Tazobactam IVPB 3.375 grams IVPB once over 60 mins; (mix in NS 100 kc6 mL) Route: IVPB; Infused Over: 60 mins; Site: left antecubital; 12:14 Follow up: Response: No adverse reaction; IV Status: Completed infusion; IV Intake: kc6 100ml 11:37 Drug: Pantoprazole IVP 40 mg IVP once Route: IVP; Site: left antecubital; kc6 14:07 Follow up: Response: No adverse reaction [facility] 12:14 Drug: Pantoprazole IV 8 mg/hr IV at 25 ml/hr continuous; (Standard dilution is 80 mg in kc6 250 mL NS) Route: IV; Rate: 25 ml/hr; Site: left antecubital; 14:07 Follow up: Response: No adverse reaction; IV Status: Infusion continued upon transfer; kc6 IV Intake: 250ml Disposition Summary: 04/23/24 11:53 Transfer Ordered Notes: Transfer Location: [facility] rn Reason: Higher level of care rn Condition: Stable rn Problem: new rn Symptoms: have improved rn Accepting Physician: (04/23/24 14:09) [email or web address] Diagnosis - Acute pancreatitis without necrosis or infection, unspecified rn - Duodenitis without bleeding rn Forms: - Medication Reconciliation Form rn - SBAR form rn Signatures: Dispatcher [employer] EDMS Jason Jimenez MD MD rn Baxter, Heather RN Pooja Foreman Kaitlyn, RN RN kc6 Corrections: (The following items were deleted from the chart) 07:53 07:53 Abdomen Pelvis W Con+CT.RAD.BRZ ordered. EDMS EDMS 07:58 07:56 Constitutional: This is a well developed, well nourished patient who is awake, rn alert, and in no acute distress. Cardiovascular: Regular rate and rhythm. No pulse deficits. Respiratory: No increased work of breathing, no retractions or nasal flaring. Abdomen/GI: Soft, bilateral lower abdominal tenderness, no rebound or guarding. No masses. rn 08:06 08:05 BLOOD CULTURE*+BA.LAB.BRZ ordered. EDMS EDMS 08:06 08:05 LACTATE+C.LAB.BRZ ordered. EDMS EDMS 08:06 08:05 PROTIME (+INR)+COAG.LAB.BRZ ordered. EDMS EDMS 08:06 08:05 PTT, ACTIVATED+COAG.LAB.BRZ ordered. EDMS EDMS 14:09 11:53 rn kc6
[2024-04-23 14:21] VITALS: BP 116/82; TEMP 99.6; O2SAT 100
--- NOTE | 2024-04-26 12:23 | EKG ---
Test Date: 2024-04-23 Test Time: 08:16:42 Breaker Engineer: KENNEY MEASUREMENT RESULTS: Intervals: Rate: 97 PA: 144 QRSD: 84 QT: 360 QTc: 457 Lester: P: 61 PA: 144 QRS: 87 T: 36 INTERPRETIVE STATEMENTS: Normal sinus rhythm Normal ECG No previous ECG available for comparison Electronically Signed On 04-26-24 12:18:14 DENTISTRY TEACHER by Rosales Nam
== END 2024-04-23 14:09 | disposition short-term general hospital (02) ==
LOC: ER 07:41
DX: K85.90 Acute pancreatitis without necrosis or infection, unspecified (principal); K29.80 Duodenitis without bleeding
CPT/HCPCS: 36415; 74177; 80053; 81001; 83605; 83690; 85025; 85610; 85730; 87040; 93005; 96361; 96365; 96367; 96375; 99285; J2405; J2470; J2543; J7030; J7050; Q9967